=== PATIENT | female | born 1980 | race Caucasian/White ===

== ENCOUNTER → 2018-11-25 | Outpatient (REF) | payer OTHER | LOC: M SFHCLERA 17:13 | PROVIDERS: ATTEND Physician Assistant | DX: R53.81 Other malaise (principal) ==

== ENCOUNTER → 2020-05-21 | Outpatient (CLI) | payer OTHER ==
--- NOTE | 2020-05-24 15:36 | REP ---
UNILATERAL MAMMOGRAM RIGHT BREAST: HISTORY: Benign biopsy complex cyst upper outer quadrant, right breast in [place] with prior mammograms for comparison 08/15/2019 and 08/29/2019. No family history of breast cancer. Tyrer-Cuzick lifetime risk of breast cancer 9.0%. Volpara breast density: A. MLO, ML and CC views of the right breast are performed with 3D tomosynthesis. Previously noted nodule in the upper outer quadrant of the right breast anteriorly has decreased in size and there is a biopsy clip at that location. A new well-circumscribed 6 mm nodule is seen in the upper outer quadrant of the right breast. Otherwise no mass or clustered microcalcifications are seen. IMPRESSION: BIRADS 0: BI-RADS/ACR category 0 mammogram, Incomplete: Need additional imaging evaluation and/or prior mammograms for comparison. ACR 0 incomplete. Decreased size of previously noted dominant nodule anteriorly in the upper outer quadrant of the right breast, with a biopsy clip now seen at that location. Reportedly, the biopsy was benign. There is a new well-circumscribed nodule in the more posterior upper outer quadrant of the right breast. Recommend ultrasound to further evaluate. This mammogram was interpreted with the aid of an FDA-approved computer-aided detection system. A. Negative x-ray reports should not delay biopsy if a dominant or clinically suspicious mass is present. B. Four to eight percent of cancers are not identified by x-ray. C. Adenosis and dense breasts may obscure an underlying neoplasm. The patient states that she or he has not had a clinical breast exam in over a year. The patient letter being requested is M0.
== END ==
LOC: M WHC 14:47
PROVIDERS: ATTEND Family Medicine
DX: R92.2 Inconclusive mammogram (principal)
CPT/HCPCS: 77065; G0279

== ENCOUNTER → 2020-06-11 | Outpatient (CLI) | payer OTHER ==
--- NOTE | 2020-07-13 09:16 | REP ---
FOCUSED RIGHT BREAST SONOGRAPHY: This report was delayed due to a malware attack on this facility. COMPARISON: Screening mammography from 05/21/20 was BI-RADS category 0 incomplete with ultrasound recommended for further evaluation of a small nodular density in the upper outer quadrant of the right breast projecting mammographically. On the mammogram images, this measures 5.5 mm. FINDINGS: In the 10 o'clock position of the right breast 7 cm from the nipple, there is a 6 x 6 x 3 mm cyst which is felt to account for the mammographic finding. At 11 o'clock 5 cm from the nipple in the right upper outer quadrant, the previous biopsy site with marker clip is seen. IMPRESSION: BI-RADS category 2 benign findings. Simple cyst upper outer quadrant right breast. MTDD
== END ==
LOC: M WHC 07:14
PROVIDERS: ATTEND Nurse Practitioner
DX: N60.01 Solitary cyst of right breast (principal)

== ENCOUNTER → 2020-12-07 | Outpatient (CLI) | payer SELFPAY | LOC: M LABSMTC 13:42 | PROVIDERS: ATTEND Pediatrics | DX: Z20.822 Contact with and (suspected) exposure to COVID-19 (principal) ==

== ENCOUNTER → 2021-08-21 | Outpatient (CLI) | payer OTHER | LOC: M WHC 15:47 | PROVIDERS: ATTEND Family Medicine | DX: Z12.31 Encounter for screening mammogram for malignant neoplasm of breast (principal) ==

== ENCOUNTER → 2021-09-20 | Outpatient (CLI) | payer OTHER ==
--- NOTE | 2021-09-20 16:14 | REP ---
INDICATION: DIAG BILATERAL MAMMO, LEFT BREAST LUMP; LEFT BREAST LUMPS. COMPARISON: 05/21/2020, 08/15/2019. TECHNIQUE: Bilateral agger fee performed with tomosynthesis. Left breast ultrasound performed. FINDINGS: Mild scattered fibroglandular tissue is present. The previously identified cyst in the upper outer quadrant of the right breast slightly increased in size. There is a new smoothly marginated 6 mm nodule in the outer left breast about 4 cm from the nipple. No other new mass is seen. No clustered microcalcifications are seen. Focused left breast ultrasound is performed at the left chest wall palpable lump, and no sonographic abnormality is seen. This area is barely included on the left MLO view and could not be included on the left CC view. In the 1 o'clock region of the left breast at the site of the nodule on the mammogram, there are 2 adjacent nodules, a benign simple cyst 6 x 4 x 5 mm, and an adjacent hypoechoic nodule 6 x 5 x 5 mm. Elastography interrogation demonstrates average KP a value for each nodule 13-14. The Volpara volumetric breast density pattern is B. IMPRESSION: BIRADS/ACR category 4, suspicious. A smoothly marginated nodule is seen in the lateral left breast on the mammogram. Ultrasound shows 2 adjacent nodules in this region, 1 represents an anechoic benign simple cyst maximum diameter of 6 mm and the other is either a solid nodule or complex cyst. Recommend ultrasound-guided biopsy of that hypoechoic nodule in the left breast. This patient's Tyrer-Cuzick lifetime breast cancer risk assessment score is 9.6%. This mammogram was interpreted with the aid of an FDA-approved computer-aided detection system. The patient states she had a clinical breast exam in over 1 year. The patient letter being requested is M4. RECOMMENDATION: Recommend ultrasound-guided biopsy hypoechoic nodule left breast as discussed in detail above. <Electronically signed by Og Srinivasan > 09/20/21 [id number]
== END ==
LOC: M WHC 11:56
PROVIDERS: ATTEND Family Medicine
DX: Z12.31 Encounter for screening mammogram for malignant neoplasm of breast (principal); N64.89 Other specified disorders of breast

== ENCOUNTER → 2021-10-16 | Outpatient (CLI) | payer OTHER ==
[~2021-10-16] MED LIST: DIAZ5TAB PO; VERA40TA PO
[2021-10-16 10:14] VITALS: BP 150/86
== END ==
LOC: M WHCPRO 10:25
PROVIDERS: ATTEND Surgery
DX: D24.2 Benign neoplasm of left breast (principal); R92.8 Other abnormal and inconclusive findings on diagnostic imaging of breast
CPT/HCPCS: 19083; 19084; 77065; 88305; G0279

== ENCOUNTER → 2022-01-27 | Outpatient (CLI) | payer OTHER | LOC: M RAD 08:17 | PROVIDERS: ATTEND Psychiatry & Neurology Neurology | DX: I67.1 Cerebral aneurysm, nonruptured (principal); I15.9 Secondary hypertension, unspecified ==

== ENCOUNTER → 2022-04-15 | Outpatient (CLI) | payer OTHER | LOC: M WHC 07:57 | PROVIDERS: ATTEND Surgery | DX: R92.8 Other abnormal and inconclusive findings on diagnostic imaging of breast (principal) ==